=== PATIENT | female | born 1965 | race Caucasian/White ===

== ENCOUNTER 2022-09-23 16:09 | Emergency (ER) | payer BC, SELFPAY ==
--- NOTE | ~2022-09-23 | XR_ITS ---
EXAMINATION: XR HAND, LEFT CLINICAL INFORMATION: Third degree morales. COMPARISON: None TECHNIQUE: PA, lateral, and oblique views of the left hand. FINDINGS: The bones and soft tissues are normal. No fracture. Alignment is anatomic. Joint spaces are maintained. No erosions or soft tissue calcifications. XR/XR hand LT min 3V IMPRESSION: Unremarkable left hand with no bony or soft tissue abnormality seen.
[2022-09-23 18:17] VITALS: BP 157/67; PULSE 58; RESP 16; TEMP 36.7; O2SAT 99; BMI 32.3
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
[2022-09-23 19:40] VITALS: BP 148/73; PULSE 72; RESP 18; TEMP 36.8; O2SAT 95
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
[2022-09-23] MEDS: Diphth,Pertus(ACell),Tet Adult 0.5 ML SYRINGE IM (20:04)
--- NOTE | 2022-09-23 20:28 | PC.NURSE ---
IV access obtained L AC arm 20g
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
[2022-09-23 21:29] VITALS: BP 158/111; PULSE 64; RESP 22; TEMP 36.9; O2SAT 99
--- NOTE | 2022-09-23 22:05 | PC.NURSE ---
Dtap form given to pt.
[2022-09-23 22:10] LABS: Influenza A PCR NEGATIVE (Negative); Influenza B PCR NEGATIVE (Negative); Resp Syncy Virus RNA Qual PCR NEGATIVE (Negative); SARS COV2 PCR INHOUSE NEGATIVE (Negative)
[2022-09-23] MEDS: oxyCODONE HCl Immed Release 5 MG TABLET PO (22:12)
[2022-09-23] MEDS: ondansetron HCL 4 MG/2 ML VIAL IVPUSH (22:13)
[2022-09-23] MEDS: LORazepam 2 MG/ML VIAL IVPUSH (22:13)
--- NOTE | 2022-09-23 22:20 | PC.NURSE ---
Addendum entered by Hannah Wright 09/23/22 22:29: Spoke to Edmar from pharmacy- he is aware; issue being addressed with barcode being able to scan Addendum entered by Hannah Wright 09/23/22 22:22: per DEE Original Note: Unable to scan oxycodone PO, barcode ink faded will contact pharmacy and let them know as this is not the first med to be sent like this. Med administered.
--- NOTE | 2022-09-23 22:22 | PC.NURSE ---
pt refused morphine iv push, wants to wait to see if oxycodone PO will be enough for pain
--- NOTE | 2022-09-23 22:24 | MHC.EDTECH ---
[facility] HERE FOR TRANSPORT TO [facility] @ THIS TIME
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
--- NOTE | 2022-09-23 23:06 | PC.NURSE ---
report called to JELANI Thompson [facility]
== END 2022-09-23 22:54 | disposition short-term general hospital (02) ==
PROVIDERS: Nurse Practitioner Family; Emergency Provider Internal Medicine; PCP Internal Medicine
DX: S60.512A Abrasion of left hand, initial encounter (principal); T23.202A Burn of second degree of left hand, unspecified site, initial encounter; T31.0 Burns involving less than 10% of body surface; M79.642 Pain in left hand; F41.1 Generalized anxiety disorder; F43.0 Acute stress reaction; X10.2XXA Contact with fats and cooking oils, initial encounter; Y93.9 Activity, unspecified; Y92.000 Kitchen of unspecified non-institutional (private) residence as the place of occurrence of the external cause; Y99.9 Unspecified external cause status; Z20.822 Contact with and (suspected) exposure to COVID-19; Z79.899 Other long term (current) drug therapy; Z23 Encounter for immunization
CPT/HCPCS: 0241U; 16025; 73130; 90471; 90715; 96374; 96375; 99285; J0690; J2060; J2270; J2405